=== PATIENT | female | born 1985 | race Caucasian/White ===

== ENCOUNTER 2017-08-31 20:16 | Emergency (ER) | END 2017-08-31 21:25 | disposition home or self-care (01) ==

== ENCOUNTER 2017-10-15 17:47 | Emergency (ER) | END 2017-10-15 21:08 | disposition left against medical advice (07) ==

== ENCOUNTER 2017-10-16 19:06 | Emergency (ER) | END 2017-10-16 22:08 | disposition home or self-care (01) ==

== ENCOUNTER 2018-10-09 13:38 | Emergency (ER) | payer SELFPAY ==
[~2018-10-09] VITALS: Wt 83.5 kg
[~2018-10-09 13:38] MED LIST: CYCL10TA7 PO; HC30CR25 TOP; HYDR-843 PO; NAPR-985 PO; ORPH100T PO; TRIA15CR52 TOP
[2018-10-09 14:35] VITALS: BP 156/69; PULSE 79; RESP 16
== END 2018-10-09 18:23 | disposition left against medical advice (07) ==
LOC: FTE 13:38
DX: Z53.21 Procedure and treatment not carried out due to patient leaving prior to being seen by health care provider (principal)